=== PATIENT | male | born 1990 | race Caucasian/White ===

== ENCOUNTER → 2016-12-26 09:48 | Emergency (ER) | payer BC ==
--- NOTE | 2016-12-26 11:19 | ED ---
Throat Pain/Nasal Congestion - HPI Summary HPI Summary: Pt here w/ Rt eye irritation, redness and watery. Woke w/ sharp pain this morning - denies known injuries yesterday or this morning - felt like something was in there - pain is sharp at times. No change in vision, no PIMENTEL. Denies use of glasses or contact lenses. Mom reports h/o corneal abrasion as a child w/o residual issues - pt does not recall this so cannot compare to current sx. Has not tried anything for pain. 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 - Allergies/Home Medications Allergies/Adverse Reactions: Allergies Allergy/AdvReac Type Severity Reaction Status Date / Time No Known Allergies Allergy Verified 08/17/16 21:10 PMH/Surg Hx/FS Hx/Imm Hx Previously Healthy: Yes Endocrine/Hematology History: Denies: Hx Anticoagulant Therapy, Hx Blood Disorders, Hx Diabetes, Hx Thyroid Disease, Autoimmune Disease Cardiovascular History: Denies: Hx Hypertension Respiratory History: Denies: Hx Asthma, Hx Chronic Obstructive Pulmonary Disease (COPD) GI History: Denies: Hx Ulcer Sensory History: Denies: Hx Contacts or Glasses Opthamlomology History: Reports: Hx Eye Injury - h/o corneal abrasion as a child - no residual issues Denies: Hx Cataracts, Hx Contacts or Glasses, Hx Eye Prosthesis, Hx Glaucoma , Hx Legally Blind - Surgical History Surgery Procedure, Year, and Place: adenoids 2004 Infectious Disease History: No Infectious Disease History: Denies: Hx Clostridium Difficile, Hx Hepatitis, Hx Human Immunodeficiency Virus (HIV), Hx of Known/Suspected MRSA, Hx Shingles, Hx Tuberculosis, Hx Known/ Suspected VRE, Hx Known/Suspected VRSA, History Other Infectious Disease, Traveled Outside the [place] in Last 30 Days - Family History Known Family History: Positive: Hypertension - Social History Occupation: Employed Full-time Lives: With Family Alcohol Use: Rare Hx Substance Use: No Substance Use Type: Reports: None Hx Tobacco Use: Yes Smoking Status (MU): Current Some Day Smoker Type: Cigars Review of Systems Constitutional: Negative Eyes: Other - see HPI Positive: Photophobia - mild. Negative: Blurred Vision, Diplopia ENT: Other - sneezing Negative: Dental Pain, Sore Throat, Ear Ache, Nasal Discharge Cardiovascular: Negative Respiratory: Negative Negative: Vomiting, Nausea Positive: no symptoms reported Musculoskeletal: Negative Skin: Negative Neurological: Negative Psychological: Normal All Other Systems Reviewed And Are Negative: Yes Physical Exam Triage Information Reviewed: Yes Vital Signs On Initial Exam: Initial Vitals Temp Pulse Resp BP Pulse Ox 97.8 F 67 17 171/101 98 12/26/16 10:01 12/26/16 10:01 12/26/16 10:01 12/26/16 10:01 12/26/16 10:01 Vital Signs Reviewed: Yes Appearance: Positive: Well-Appearing, Pain Distress - mild - Rt eye red, watering - able to keep eye open in dark room, Obese Skin: Positive: Warm, Dry Head/Face: Positive: Normal Head/Face Inspection - no overlying rash Eyes: Positive: EOMI, GARY - mild photosensitivity, Conjunctiva Inflammed, Discharge - watery, Other: - no mary FB, lesions or abrasion observed; fluoresceine dye + figueroa lamp reveals fine piece of hair along lower lid/globe - removed w/o difficulty - no other abnormalities (ie. abrasions, FB, Siedel's sign) ENT: Positive: Normal ENT inspection, Hearing grossly normal, Pharynx normal, TMs normal. Negative: Nasal congestion, Nasal drainage, Tonsillar swelling, Tonsillar exudate Neck: Positive: Supple, Nontender Respiratory/Lung Sounds: Positive: Breath Sounds Present Cardiovascular: Positive: Normal Musculoskeletal: Positive: Normal, Strength/ROM Intact Neurological: Positive: Normal, Sensory/Motor Intact, Alert, Oriented to Person Place, Time, CN Intact II-III Psychiatric: Positive: Normal Procedures - Eye Procedure Alcaine Drops Administered: No - tetracaine Eye FB Removal: removal w/ cotton swab - strand of hair Eye Irrigated w/ Saline (ccs): 3 - see PE for details Diagnostics - Vital Signs Vital Signs Temp Pulse Resp BP Pulse Ox 12/26/16 10:01 97.8 F 67 17 171/101 98 - Laboratory Lab Statement: Any lab studies that have been ordered have been reviewed, and results considered in the medical decision making process. Re-Evaluation - Re-Evaluation First Eval Change: Improved EENT Course/Dx - Course Course Of Treatment: Strand of hair removed from Rt eye w/o difficulty. Pt tolerated well and reports relief. F/u care discussed and danger s/sx of when to return to ED. Pt and mom voice understanding. - Diagnoses Provider Diagnoses: Foreign body of right eye Discharge - Discharge Plan Condition: Stable Disposition: HOME Patient Education Materials: Eye Foreign Body (ED) Referrals: Lb Figueroa MD [Medical Doctor] - Additional Instructions: You appear to have had a piece of hair in your eye today. This was removed withrelief of pain. You do not appear to have any abrasions. It is advised that you rinse your eye 5-6 times today and tomorrow with saline eye wash provided. If your eye persists with redness, pain, drainage, you may seek consult with an ophthomologist - contact information included here. *If you develop acute pain and/or loss of vision, return to ED
[2016-12-26 14:04] VITALS: BP 160/94
== END | disposition home or self-care (01) ==
LOC: ED 09:48
DX: H53.149 Visual discomfort, unspecified (principal); Z72.0 Tobacco use; T15.91XA Foreign body on external eye, part unspecified, right eye, initial encounter; X58.XXXA Exposure to other specified factors, initial encounter; Y93.9 Activity, unspecified; Y92.9 Unspecified place or not applicable
CPT/HCPCS: 99282

== ENCOUNTER 2017-07-06 01:20 | Emergency (ER) | payer BC ==
[2017-07-06] MEDS ORDERED: NS 0.9% 1000 ML* 1,000 ML IV ONE (01:55)
[2017-07-06 02:10] LABS: ABS Basophils 0.1 10^3/ul (0-0.2); ABS Eosinophils 0.1 10^3/ul (0-0.6); ABS Lymphocytes 1.6 10^3/ul (1.0-4.8); ABS Monocytes 0.6 10^3/ul (0-0.8); ABS Neutrophils 6.6 10^3/ul (1.5-7.7); ABS Nucleated RBC 0 10^3/ul; Eosinophil % 0.9 % (0-6); Hematocrit 43 % (42-52); Lymphocyte % 18.3 % (25-47); Mean Corpuscular HGB Conc 35 g/dl (31-36); Mean Corpuscular Hemoglobin 29 pg (27-31); Mean Corpuscular Volume 84 fL (80-94); Mean Platelet Volume 7 um3 (7.4-10.4); Nucleated Red Blood Cells % 0; Platelet Count 316 10^3/ul (150-450); Red Blood Count 5.13 10^6/ul (4.0-5.4); Red Cell Distribution Width 13 % (10.5-15)
[2017-07-06 02:23] LABS: Urine Appearance Clear; Urine Blood 2+ (Negative); Urine Color Yellow; Urine Ketones Negative (Negative); Urine Protein Negative (Negative); Urine Specific Gravity 1.016 (1.010-1.030); Urine Urobilinogen Negative (Negative)
[2017-07-06 02:24] LABS: EGFR Non-African American 95.4 (>60)
[2017-07-06] MEDS ORDERED: Tamsulosin CAP* 0.4 MG PO ONE (02:54)
[2017-07-06] MEDS ORDERED: Ketorolac INJ* 30 MG/ML 1 ML VIAL IV PUSH ONE (02:54)
--- NOTE | 2017-07-06 03:23 | ED ---
Mack James Rebecca, scribed for Ricardo Bennett MD on 07/06/17 at 0146 . Abdominal Pain/Male - HPI Summary HPI Summary: Pt is a 26 y/o M who presents to ED c/o constipation. Reports his last BM was yesterday, though he is unsure of the time. Sx aggravated and alleviated by nothing. Additionally c/o decreased urinary frequency since about 2 hours prior to arrival, stating it "feels like I have a full bladder" though he is unable to produce significant urine. Notes left flank pain. Denies fever. - History of Current Complaint Chief Complaint: EDFlankPain Stated Complaint: ABD PAIN, CONSTIPATION Time Seen by Provider: 07/06/17 01:28 Hx Obtained From: Patient Onset/Duration: Still Present Severity Currently: Moderate Pain Intensity: 6 Pain Scale Used: 0-10 Numeric Location: Flank - Left Aggravating Factor(s): Nothing Alleviating Factor(s): Nothing Associated Signs And Symptoms: Positive: Constipation, Other - Decreased urinary frequency - Allergies/Home Medications Allergies/Adverse Reactions: Allergies Allergy/AdvReac Type Severity Reaction Status Date / Time No Known Allergies Allergy Verified 08/17/16 21:10 PMH/Surg Hx/FS Hx/Imm Hx Endocrine/Hematology History: Denies: Hx Anticoagulant Therapy, Hx Blood Disorders, Hx Diabetes, Hx Thyroid Disease Cardiovascular History: Denies: Hx Hypertension Respiratory History: Denies: Hx Asthma, Hx Chronic Obstructive Pulmonary Disease (COPD) GI History: Denies: Hx Ulcer Sensory History: Reports: Hx Eye Injury - h/o corneal abrasion as a child - no residual issues Denies: Hx Cataracts, Hx Contacts or Glasses, Hx Eye Prosthesis, Hx Glaucoma , Hx Legally Blind Opthamlomology History: Reports: Hx Eye Injury - h/o corneal abrasion as a child - no residual issues Denies: Hx Cataracts, Hx Contacts or Glasses, Hx Eye Prosthesis, Hx Glaucoma , Hx Legally Blind - Surgical History Surgery Procedure, Year, and Place: adenoids 2004 Infectious Disease History: No Infectious Disease History: Denies: Hx Clostridium Difficile, Hx Hepatitis, Hx Human Immunodeficiency Virus (HIV), Hx of Known/Suspected MRSA, Hx Shingles, Hx Tuberculosis, Hx Known/ Suspected VRE, Hx Known/Suspected VRSA, History Other Infectious Disease, Traveled Outside the [place] in Last 30 Days - Family History Known Family History: Positive: Hypertension - Social History Alcohol Use: Rare Hx Substance Use: No Substance Use Type: Reports: None Hx Tobacco Use: Yes Smoking Status (MU): Current Some Day Smoker Type: Cigars Review of Systems Negative: Fever Positive: frequency - Decreased urinary frequency, flank pain - Left, other - Constipation All Other Systems Reviewed And Are Negative: Yes Physical Exam - Summary Physical Exam Summary: VITAL SIGNS: Reviewed. GENERAL: ~Patient is a well-developed and nourished male who is lying comfortable in the stretcher. Patient is not in any acute respiratory distress. HEAD AND FACE: No signs of trauma. No ecchymosis, hematomas or skull depressions. No sinus tenderness. EYES: PERRLA, EOMI x 2, No injected conjunctiva, no nystagmus. EARS: Hearing grossly intact. Ear canals and tympanic membranes are within normal limits. MOUTH: Oropharynx within normal limits. NECK: Supple, trachea is midline, no adenopathy, no JVD, no carotid bruit, no c- spine tenderness, neck with full ROM. CHEST: Symmetric, no tenderness at palpation LUNGS: Clear to auscultation bilaterally. No wheezing or crackles. CVS: Regular rate and rhythm, S1 and S2 present, no murmurs or gallops appreciated. ABDOMEN: Soft, non-tender. No signs of distention. No rebound no guarding, and no masses palpated. Mildly hyperactive bowel sounds. EXTREMITIES: FROM in all major joints, no edema, no cyanosis or clubbing. NEURO: Alert and oriented x 3. No acute neurological deficits. Speech is normal and follows commands. SKIN: Dry and warm Triage Information Reviewed: Yes Vital Signs On Initial Exam: Initial Vitals Temp Pulse Resp BP Pulse Ox 98.2 F 98 16 138/68 99 07/06/17 01:23 07/06/17 01:23 07/06/17 01:23 07/06/17 01:23 07/06/17 01:23 Vital Signs Reviewed: Yes Diagnostics - Vital Signs Vital Signs Temp Pulse Resp BP Pulse Ox 07/06/17 01:23 98.2 F 98 16 138/68 99 - Laboratory Result Diagrams: 07/06/17 01:59 07/06/17 01:59 Lab Statement: Any lab studies that have been ordered have been reviewed, and results considered in the medical decision making process. - CT CT Abd/Pel CT Interpretation: Positive (See Comments) - Mild to left hydronephrosis and perinephric inflammation secondary to a 5x5 mm distal left ureteral stone, just proximal to the UVJ. ED physician reviewed this radiology report, pending official radiology report. CT Interpretation Completed By: Radiologist Re-Evaluation - Re-Evaluation First Eval Re-Evaluation Time: 03:15 Change: Improved Comment: Discussed blood, UA and CT results with the pt who is feeling much better. Explained the plan to D/C and that he should followup with urology. Abdominal Pain Fem Course/Dx - Course Assessment/Plan: Pt is a 26 y/o M who presents to ED c/o constipation. Reports his last BM was yesterday, though he is unsure of the time. Additionally c/o decreased urinary frequency since about 2 hours prior to arrival, stating it "feels like I have a full bladder" though he is unable to produce significant urine. Notes left flank pain. Denies fever. Bloodwork and UA were done in the ED. In the ED course, pt received Toradol, Flomax and fluids. CT Abd/Pel reveals a left ureteral stone and renal colic, with full findings above. Pt will be D/C to home with dx of renal colic and left ureteral stone with a followup with urology and Rx for Motrin, percocet and flomax. He understands and agrees. - Diagnoses Provider Diagnoses: Renal colic, Left ureteral stone Discharge - Discharge Plan Condition: Stable Disposition: HOME Prescriptions: Ibuprofen TAB* [Motrin TAB* 800 MG] 800 mg PO Q6H PRN #30 tab PRN Reason: Pain Oxycodone HCl/Acetaminophen [Percocet 5-325 mg Tablet] 1 each PO Q6HR PRN #14 tablet MDD 4 PRN Reason: Pain Tamsulosin CAP* [Flomax CAP*] 0.4 mg PO BEDTIME #7 cap Patient Education Materials: Renal Colic (ED), Ureteral Stones (ED) Referrals: Darrell Talavera MD [Primary Care Provider] - 3 Days Rey Manning MD [Medical Doctor] - 3 Days Additional Instructions: RETURN TO EMERGENCY DEPARTMENT FOR ANY NEW OR WORSENING SYMPTOMS The documentation as recorded by the Mack ferrer Rebecca accurately reflects the service I personally performed and the decisions made by me, Ricardo Bennett MD.
[2017-07-06 04:01] VITALS: BP 158/71
--- NOTE | 2017-07-06 08:24 | RAD ---
INDICATION: Abdominal pain COMPARISON: None TECHNIQUE: Noncontrast axial source images were obtained from the hemidiaphragms to the symphysis pubis. This examination was ordered using a renal stone protocol which is performed without oral or intravenous contrast. Coronal and sagittal reconstructed images were acquired. Lung bases: The lung bases are clear. Liver: The liver is normal mildly enlarged. Noncontrast imaging shows no evidence of a hepatic mass or ductal dilatation. Gallbladder: Gallbladder is contracted. Spleen: The spleen is normal in size. The noncontrast CT appearance is normal. Pancreas: Noncontrast imaging shows no pancreatic mass or ductal dilitation. Adrenal glands: No masses are identified. Kidneys/Bladder: There is a 1 mm nonobstructive mid pole right renal calculus. There is a 4 mm calculus near the left UVJ associated with mild left-sided hydroureter and minimal fullness of left renal collecting system. Noncontrast imaging shows no evidence of a renal mass. The bladder is unremarkable.. Adenopathy: There is no evidence of intraperitoneal or retroperitoneal adenopathy. Evaluation is limited without oral contrast. Fluid collections: There are no free or localized fluid collections. Vessels: The aorta and iliac vessels are normal in caliber. There are no significant atherosclerotic changes. The IVC appears normal Pelvic organs: The prostate and seminal vesicles appear normal GI tract: Evaluation of the bowel is limited without oral contrast. The stomach, small bowel, and lower GI tract appear grossly normal. There are no obstructive findings. The appendix is visualized and appears normal. Soft tissues: No soft tissue abnormalities of the extraperitoneal abdomen or pelvis are identified. Osseous structures: There are no acute osseous findings. IMPRESSION: 4 mm left ureteral calculus near the UVJ with minor obstructive findings. 1 mm nonobstructive right renal calculus. Mildly enlarged liver
== END 2017-07-06 04:01 | disposition home or self-care (01) ==
LOC: ED 01:20
DX: N23 Unspecified renal colic (principal); N20.1 Calculus of ureter; N13.30 Unspecified hydronephrosis
CPT/HCPCS: 36415; 74176; 80053; 81003; 81015; 82150; 83690; 85025; 86140; 87086; 99283; J1885